=== PATIENT | female | born 1935 | race Caucasian/White ===

== ENCOUNTER → 2018-09-27 | Outpatient (CLI) | payer MEDICARE, OTHER ==
[~2018-09-27] MED LIST: ACETAMINOPHEN325 M1 PO; AMLODIPINE BESYL5 MG PO; ASPIRIN EC81 MG PO; CARVEDILOL12.5 MG PO; COLACE100 MG PO; COLACE100 MG/10 PO; COMBIVENT RESPIM4 GM IH; DIOVAN160 MG PO; DULCOLAX SUPP10 MG RC; FAMOTIDINE20 MG PO; HYDROCHLOROTHIA25 MG PO; LANTUS 3ML100 UNITS/; NEPHRO-VITE TABL1 EA PO; VALIUM2 MG PO; ZOLOFT50 MG PO
--- NOTE | 2018-09-27 18:54 | Diagnostic Imaging Report ---
Exam: MRI without contrast Indication: Neurologic neglect, Alzheimer disease. Comparisons: Head CTs 08/24/2017 and 08/26/2017 Technique: Sagittal T2; axial DWI, FLAIR, MPGR, T1, Coronal FLAIR. Intravenous contrast: None Findings: Scalp: Normal in signal . No masses . Bone marrow: Normal in signal intensity. Extra-axial: No masses or fluid collections. Brain sulci: Appropriate for age. Ventricles: Mild compensated dilatation due to volume loss . No hydrocephalus . Parenchyma: Scattered T2/FLAIR hyperintense foci throughout the supratentorial white matter and cortez are nonspecific but likely represent small vessel ischemic changes. No acute hemorrhage, mass or acute vascular insult. Suprasellar region: No abnormalities. Craniocervical junction: No abnormalities. Patent foramen magnum. No Chiari one malformation. Vessels: Normal flow-voids in the arteries and sinuses. Incidental findings: Disc osteophyte complex at C3-C4 results in mild canal stenosis. IMPRESSION: 1. No acute abnormalities. 2. No changes when compared to head CT dated 08/26/2017. Chronic findings: Mild generalized cerebral volume loss. Mild supra and infratentorial white matter microvascular ischemic changes. A preliminary report was provided by Dr. Pierson on 09/27/2018 6:53 PM. I have reviewed the images and agree with findings in the preliminary report. Signed by: Dr. Dee Gaytan M.D. on 09/27/2018 8:07 PM
== END ==
LOC: MRI 15:58
DX: R41.3 Other amnesia (principal); G30.9 Alzheimer's disease, unspecified
CPT/HCPCS: 70551

== ENCOUNTER 2021-03-02 19:05 | Emergency (ER) | payer MEDICARE, OTHER ==
[~2021-03-02] VITALS: Ht 165.1 cm; Wt 56.7 kg
[2021-03-02] MEDS ORDERED: SODIUM CHLORIDE 0.9% 1000ML 1,000 ML IV ONE ×2 (19:45→23:15)
[2021-03-02 20:11] LABS: BASOPHILS # (AUTO) 0.1 (0.0-0.1); BASOPHILS % 0.8 % (0.0-1.0); EOSINOPHILS # (AUTO) 0.1 (0.0-0.4); EOSINOPHILS % 1.3 % (0.0-6.0); HEMATOCRIT 44.3 % (34.2-44.1); HEMOGLOBIN 14.1 g/dL (12.0-16.0); LYMPHOCYTES # (AUTO) 1.5 (1.0-3.2); LYMPHOCYTES % 15.2 % (18.0-39.1); MEAN CORPUSCULAR HEMOGLOBIN 30.4 pg (28-32); MEAN CORPUSCULAR HGB CONC 31.8 g/dL (31-35); MEAN CORPUSCULAR VOLUME 95.5 fL (81-99); MONOCYTES # (AUTO) 0.6 (0.2-0.8); NEUTROPHILS # (AUTO) 7.7 (2.1-6.9); NEUTROPHILS % 75.8 % (38.7-80.0); PLATELET COUNT 215 x10e3/uL (140-360); RED BLOOD COUNT 4.64 x10e6/uL (3.6-5.1); RED CELL DISTRIBUTION WIDTH 12.6 % (11.7-14.4)
[2021-03-02 20:27] LABS: ALBUMIN 3.4 g/dL (3.5-5.0); ANION GAP 19.1 mmol/L (8-16); CALCIUM 8.6 mg/dL (8.4-10.2); CREATININE, SERUM 1.59 mg/dL (0.57-1.11); POTASSIUM 4.1 mmol/L (3.5-5.1)
[2021-03-02] MEDS ORDERED: SODIUM CHLORIDE 0.9% 500ML 500 ML IV ONE (20:30)
[2021-03-02] MEDS ORDERED: CEFTRIAXONE 1 GM in SODIUM CHLORIDE 0.9% 50ML 50 ML IV ONE (20:30)
[2021-03-02 20:33] LABS: CREATINE KINASE MB 3.7 ng/mL (0-5.0)
[2021-03-02 21:14] LABS: CLARITY,URINE SL CLOUDY (CLEAR); COLOR,URINE STRAW (YELLOW); LEUKOCYTE ESTERASE ,URINE NEGATIVE (NEGATIVE); NITRITE,URINE NEGATIVE (NEGATIVE); PROTEIN,URINE DIPSTICK 1+ (NEGATIVE)
[2021-03-02 21:15] LABS: KETONES,URINE TRACE (NEGATIVE); URINE UROBILINOGEN 0.2 mg/dL (0.2 - 1)
[2021-03-02 21:25] LABS: AMORPHOUS SEDIMENT,URINE MODERATE (FEW); BACTERIA,URINE FEW /HPF; EPITHELIAL CELLS,URINE MODERATE /LPF; WBC,URINE (MAN) 0-5 /HPF (0-5)
[2021-03-02 21:26] LABS: MUCUS,URINE FEW (RARE)
== END 2021-03-03 02:10 | disposition home or self-care (01) ==
LOC: ER 19:57
DX: R53.1 Weakness (principal); E86.0 Dehydration; Z85.820 Personal history of malignant melanoma of skin
CPT/HCPCS: 36415; 70450; 71045; 80053; 81001; 82550; 82553; 83605; 84484; 85025; 87040; 93005; 96365; 99284; J0696; J7030; J7040

== ENCOUNTER 2021-08-09 08:09 | Emergency (ER) | payer MEDICARE, OTHER ==
[~2021-08-09] VITALS: Ht 165.1 cm; Wt 56.7 kg
[2021-08-09 08:39] LABS: BASOPHILS # (AUTO) 0.1 (0.0-0.1); BASOPHILS % 0.5 % (0.0-1.0); HEMATOCRIT 43.6 % (34.2-44.1); HEMOGLOBIN 13.9 g/dL (12.0-16.0); LYMPHOCYTES # (AUTO) 0.9 (1.0-3.2); LYMPHOCYTES % 9.6 % (18.0-39.1); MEAN CORPUSCULAR HEMOGLOBIN 29.8 pg (28-32); MEAN CORPUSCULAR HGB CONC 31.9 g/dL (31-35); MEAN CORPUSCULAR VOLUME 93.6 fL (81-99); MONOCYTES # (AUTO) 0.7 (0.2-0.8); NEUTROPHILS % 82.7 % (38.7-80.0); PLATELET COUNT 196 x10e3/uL (140-360); RED BLOOD COUNT 4.66 x10e6/uL (3.6-5.1); RED CELL DISTRIBUTION WIDTH 13.3 % (11.7-14.4)
[2021-08-09] MEDS ORDERED: TETANUS/DIPHTHERIA TOX ADULT 0.5 ML SYR IM ONE (08:45)
[2021-08-09 08:53] LABS: COLOR,URINE YELLOW (YELLOW)
[2021-08-09 08:54] LABS: CLARITY,URINE CLEAR (CLEAR); KETONES,URINE NEGATIVE (NEGATIVE); LEUKOCYTE ESTERASE ,URINE NEGATIVE (NEGATIVE); NITRITE,URINE NEGATIVE (NEGATIVE); PROTEIN,URINE DIPSTICK 1+ (NEGATIVE); URINE UROBILINOGEN 0.2 mg/dL (0.2 - 1)
[2021-08-09 08:59] LABS: ALBUMIN 4.5 g/dL (3.5-5.0); ALBUMIN/GLOBULIN RATIO 1.2 (0.8-2.0); ANION GAP 14.8 mmol/L (8-16); CALCIUM 9.5 mg/dL (8.4-10.2); CREATININE, SERUM 1.11 mg/dL (0.57-1.11); POTASSIUM 3.8 mmol/L (3.5-5.1)
[2021-08-09 09:17] LABS: BACTERIA,URINE RARE /HPF; EPITHELIAL CELLS,URINE RARE /LPF; RBC,URINE 0-5 /HPF (0-5); TRANSITIONAL EPI CELLS,URINE FEW; WBC,URINE (MAN) 0-5 /HPF (0-5)
[2021-08-09] MEDS ORDERED: SODIUM CHLORIDE 0.9% 1000ML 1,000 ML IV SCH (10:00)
[2021-08-09] MEDS ORDERED: SODIUM CHLORIDE 0.9% 500ML 500 ML ONE (10:10)
[2021-08-09 10:50] VITALS: BP 135/83
== END 2021-08-09 11:02 ==
LOC: ER 08:26
DX: S00.83XA Contusion of other part of head, initial encounter (principal); S50.312A Abrasion of left elbow, initial encounter; M25.552 Pain in left hip; W19.XXXA Unspecified fall, initial encounter; Y92.128 Other place in nursing home as the place of occurrence of the external cause; F03.90 Unspecified dementia, unspecified severity, without behavioral disturbance, psychotic disturbance, mood disturbance, and anxiety; Z85.820 Personal history of malignant melanoma of skin
CPT/HCPCS: 36415; 70450; 71045; 72170; 73090; 80053; 81001; 82550; 84484; 85025; 90471; 90714; 93005; 99284; J7040

== ENCOUNTER 2023-12-19 08:44 | Inpatient (IN) | payer MEDICARE, OTHER ==
[~2023-12-19] VITALS: Ht 165.1 cm; Wt 56.7 kg
[2023-12-19] MEDS: SODIUM CHLORIDE 0.9% 1000ML 1,000 ML IV STA ×2 (09:14→09:15)
[2023-12-19] MEDS: ONDANSETRON HCL INJ 2MG/ML 2ML 2 MG/ML VIAL IV STA (09:15)
[2023-12-19 09:25] LABS: BASOPHILS # (AUTO) 0.1 (0.0-0.1); BASOPHILS % 0.8 % (0.0-1.0); EOSINOPHILS # (AUTO) 0.2 (0.0-0.4); EOSINOPHILS % 3.3 % (0.0-6.0); HEMATOCRIT 36.8 % (34.2-44.1); HEMOGLOBIN 12.1 g/dL (12.0-16.0); LYMPHOCYTES # (AUTO) 1.6 (1.0-3.2); LYMPHOCYTES % 22.1 % (18.0-39.1); MEAN CORPUSCULAR HEMOGLOBIN 30.6 pg (28-32); MEAN CORPUSCULAR HGB CONC 32.9 g/dL (31-35); MEAN CORPUSCULAR VOLUME 93.2 fL (81-99); MONOCYTES # (AUTO) 0.5 (0.2-0.8); MONOCYTES % 6.6 % (4.4-11.3); NEUTROPHILS # (AUTO) 4.8 (2.1-6.9); NEUTROPHILS % 66.1 % (38.7-80.0); PLATELET COUNT 258 x10e3/uL (140-360); RED BLOOD COUNT 3.95 x10e6/uL (3.6-5.1); RED CELL DISTRIBUTION WIDTH 13.7 % (11.7-14.4)
[2023-12-19 09:34] LABS: INR 0.99; PROTHROMBIN TIME 13.3 seconds (11.9-14.5)
[2023-12-19 09:42] LABS: ALANINE AMINOTRANSFERASE 6 IU/L (0-55); ALBUMIN 3.3 g/dL (3.5-5.0); ALBUMIN/GLOBULIN RATIO 0.9 (0.8-2.0); ALKALINE PHOSPHATASE 66 IU/L (40-150); ANION GAP 16.5 mmol/L (8-16); BILIRUBIN,TOTAL 0.5 mg/dL (0.2-1.2); BLOOD UREA NITROGEN 36 mg/dL (7-26); BUN/CREATININE RATIO 17 (6-25); CALCIUM 9.3 mg/dL (8.4-10.2); CARBON DIOXIDE 18 mmol/L (22-29); CHLORIDE 111 mmol/L (98-107); CREATINE KINASE 36 IU/L (29-168); CREATININE, SERUM 2.15 mg/dL (0.57-1.11); EST GLOMERULAR FILTRATION RATE 22 ML/MIN (>=60); GLUCOSE 120 mg/dL (74-118); POTASSIUM 4.5 mmol/L (3.5-5.1); SODIUM 141 mmol/L (136-145); TOTAL PROTEIN 6.9 g/dL (6.5-8.1)
[2023-12-19 09:49] LABS: TROPONIN I < 0.001 ng/mL (0-0.300)
[2023-12-19] MEDS: Vancomycin IV 1 GM in SODIUM CHLORIDE 0.9% 250ML 250 ML IV ONE (10:10)
[2023-12-19 12:38] LABS: BILIRUBIN,URINE NEGATIVE (NEGATIVE); CLARITY,URINE CLOUDY (CLEAR); COLOR,URINE YELLOW (YELLOW); GLUCOSE, URINE NEGATIVE (NEGATIVE); KETONES,URINE NEGATIVE (NEGATIVE); LEUKOCYTE ESTERASE ,URINE LARGE (NEGATIVE); NITRITE,URINE NEGATIVE (NEGATIVE); PH,URINE 6 (5 - 7); PROTEIN,URINE DIPSTICK 2+ (NEGATIVE); URINE UROBILINOGEN 0.2 mg/dL (0.2 - 1)
[2023-12-19 12:59] LABS: BACTERIA,URINE MANY /HPF; EPITHELIAL CELLS,URINE FEW /LPF; WBC,URINE (MAN) >50 /HPF (0-5)
[2023-12-19] MEDS: SODIUM CHLORIDE 0.9% 1000ML 1,000 ML IV SCH (13:51)
[2023-12-19] MEDS ORDERED: ONDANSETRON HCL INJ 2MG/ML 2ML 2 MG/ML VIAL IV PRN (14:00)
[2023-12-19] MEDS: SODIUM CHLORIDE 0.9% 1000ML 1,000 ML IV ONE (14:36)
[2023-12-19] MEDS: MIDODRINE HCL 5 MG TABLET PO ONE (15:47)
[2023-12-19 17:38] LABS: TROPONIN I 0.002 ng/mL (0-0.300)
[2023-12-19 18:16] VITALS: BP 108/50; PULSE 87; RESP 18; TEMP 98; O2SAT 95
[2023-12-19] MEDS ORDERED: vitaminD PO (18:51)
[2023-12-19] MEDS ORDERED: VITAMIN E400 UNI1 PO (18:51)
[2023-12-19] MEDS ORDERED: MIRTAZAPINE15 MG PO (18:51)
[2023-12-19 20:00] VITALS: BP 99/56; PULSE 85; RESP 18; TEMP 98.2; O2SAT 93
[2023-12-20] VITALS (13 sets, daily range): BP systolic 101–115; BP diastolic 51–71; PULSE 76–94; RESP 16–18; TEMP 97.9–98.3; O2SAT 93–99
[2023-12-20] MEDS ORDERED: HYDRALAZINE HCL 20 MG/ML VIAL IV PRN (02:15)
[2023-12-20 03:15] LABS: CREATINE KINASE 23 IU/L (29-168)
[2023-12-20 03:26] LABS: TROPONIN I < 0.001 ng/mL (0-0.300)
[2023-12-20 06:13] LABS: BASOPHILS % 0.7 % (0.0-1.0); EOSINOPHILS # (AUTO) 0.4 (0.0-0.4); EOSINOPHILS % 6.1 % (0.0-6.0); HEMATOCRIT 32.2 % (34.2-44.1); HEMOGLOBIN 9.8 g/dL (12.0-16.0); LYMPHOCYTES # (AUTO) 1.7 (1.0-3.2); LYMPHOCYTES % 29.8 % (18.0-39.1); MEAN CORPUSCULAR HEMOGLOBIN 29.6 pg (28-32); MEAN CORPUSCULAR HGB CONC 30.4 g/dL (31-35); MEAN CORPUSCULAR VOLUME 97.3 fL (81-99); MONOCYTES # (AUTO) 0.5 (0.2-0.8); MONOCYTES % 9.2 % (4.4-11.3); NEUTROPHILS # (AUTO) 3.1 (2.1-6.9); NEUTROPHILS % 53.3 % (38.7-80.0); PLATELET COUNT 225 x10e3/uL (140-360); RED BLOOD COUNT 3.31 x10e6/uL (3.6-5.1); RED CELL DISTRIBUTION WIDTH 13.7 % (11.7-14.4); WHITE BLOOD COUNT 5.78 x10e3/uL (4.8-10.8)
[2023-12-20 07:06] LABS: ALBUMIN 2.4 g/dL (3.5-5.0); ALBUMIN/GLOBULIN RATIO 0.9 (0.8-2.0); ANION GAP 12.1 mmol/L (8-16); BILIRUBIN,TOTAL 0.3 mg/dL (0.2-1.2); CALCIUM 7.6 mg/dL (8.4-10.2); CREATININE, SERUM 1.35 mg/dL (0.57-1.11); POTASSIUM 4.1 mmol/L (3.5-5.1); TOTAL PROTEIN 5.2 g/dL (6.5-8.1)
[2023-12-20] MEDS ORDERED: VITAMIN E 400 UNIT CAP PO SCH (09:00)
[2023-12-20] MEDS: CHOLECALCIFEROL 1,000 UNIT TAB PO SCH (09:29)
[2023-12-20] MEDS: VITAMIN E 400 UNIT CAP PO SCH (13:46)
[2023-12-20] MEDS: LOPERAMIDE HCL 2 MG CAP PO ONE (18:29)
[2023-12-20] MEDS ORDERED: LOPERAMIDE HCL 2 MG CAP PO ONE (18:35)
[2023-12-20] MEDS: MIRTAZAPINE 15 MG TAB PO SCH (21:08)
[2023-12-21] VITALS (8 sets, daily range): BP systolic 105–185; BP diastolic 53–97; PULSE 74–103; RESP 17–20; TEMP 97.2–98.8; O2SAT 95–100
[2023-12-21] MEDS: ACETAMINOPHEN 325 MG TAB PO PRN (00:24)
[2023-12-21] MEDS: ONDANSETRON HCL 4 MG ORAL DISINTEGRATING TAB PO PRN (00:24)
[2023-12-21 05:43] LABS: BASOPHILS % 0.9 % (0.0-1.0); EOSINOPHILS # (AUTO) 0.2 (0.0-0.4); EOSINOPHILS % 3.6 % (0.0-6.0); HEMOGLOBIN 9.1 g/dL (12.0-16.0); LYMPHOCYTES # (AUTO) 0.9 (1.0-3.2); LYMPHOCYTES % 20.6 % (18.0-39.1); MEAN CORPUSCULAR HEMOGLOBIN 30.5 pg (28-32); MEAN CORPUSCULAR HGB CONC 32.5 g/dL (31-35); MONOCYTES # (AUTO) 0.4 (0.2-0.8); MONOCYTES % 8.1 % (4.4-11.3); NEUTROPHILS % 66.1 % (38.7-80.0); PLATELET COUNT 158 x10e3/uL (140-360); RED BLOOD COUNT 2.98 x10e6/uL (3.6-5.1); RED CELL DISTRIBUTION WIDTH 13.2 % (11.7-14.4); WHITE BLOOD COUNT 4.46 x10e3/uL (4.8-10.8)
[2023-12-21 06:18] LABS: ANION GAP 12.1 mmol/L (8-16); CALCIUM 8.2 mg/dL (8.4-10.2); CREATININE, SERUM 1.09 mg/dL (0.57-1.11); POTASSIUM 4.1 mmol/L (3.5-5.1)
[2023-12-21 06:46] LABS: THYROID STIMULATING HORMONE 4.05 uIU/mL (0.350-4.940)
[2023-12-22] VITALS (7 sets, daily range): BP systolic 124–143; BP diastolic 53–87; PULSE 79–97; RESP 17–20; TEMP 97.7–99.1; O2SAT 97–100
[2023-12-22 06:46] LABS: BASOPHILS # (AUTO) 0.1 (0.0-0.1); BASOPHILS % 1.1 % (0.0-1.0); EOSINOPHILS # (AUTO) 0.4 (0.0-0.4); EOSINOPHILS % 8.3 % (0.0-6.0); HEMATOCRIT 28.9 % (34.2-44.1); HEMOGLOBIN 9.2 g/dL (12.0-16.0); LYMPHOCYTES # (AUTO) 1.5 (1.0-3.2); LYMPHOCYTES % 33.3 % (18.0-39.1); MEAN CORPUSCULAR HEMOGLOBIN 30.1 pg (28-32); MEAN CORPUSCULAR HGB CONC 31.8 g/dL (31-35); MEAN CORPUSCULAR VOLUME 94.4 fL (81-99); MONOCYTES # (AUTO) 0.4 (0.2-0.8); MONOCYTES % 8.7 % (4.4-11.3); NEUTROPHILS # (AUTO) 2.1 (2.1-6.9); NEUTROPHILS % 47.5 % (38.7-80.0); PLATELET COUNT 174 x10e3/uL (140-360); RED BLOOD COUNT 3.06 x10e6/uL (3.6-5.1); RED CELL DISTRIBUTION WIDTH 13.3 % (11.7-14.4); WHITE BLOOD COUNT 4.36 x10e3/uL (4.8-10.8)
[2023-12-22 07:39] LABS: ALBUMIN 2.6 g/dL (3.5-5.0); ALBUMIN/GLOBULIN RATIO 0.9 (0.8-2.0); ANION GAP 10.9 mmol/L (8-16); BILIRUBIN,TOTAL 0.6 mg/dL (0.2-1.2); CALCIUM 8.6 mg/dL (8.4-10.2); CREATININE, SERUM 1.07 mg/dL (0.57-1.11); POTASSIUM 3.9 mmol/L (3.5-5.1); TOTAL PROTEIN 5.6 g/dL (6.5-8.1)
[2023-12-22] MEDS: SODIUM CHLORIDE 0.9% 250ML 250 ML ONE (10:53)
[2023-12-22] MEDS ORDERED: LOPERAMIDE HCL 2 MG CAP PO PRN (18:00)
[2023-12-23] VITALS (7 sets, daily range): BP systolic 116–140; BP diastolic 65–84; PULSE 81–91; RESP 18–20; TEMP 98.4–98.7; O2SAT 95–98
[2023-12-23 07:33] LABS: ANION GAP 12.5 mmol/L (8-16); CALCIUM 8.4 mg/dL (8.4-10.2); CREATININE, SERUM 0.91 mg/dL (0.57-1.11); POTASSIUM 3.5 mmol/L (3.5-5.1)
[2023-12-23] MEDS: LOPERAMIDE HCL 2 MG CAP PO PRN (11:55)
[2023-12-24] VITALS: BP 97/84; PULSE 82; RESP 20; TEMP 98.6; O2SAT 97
[2023-12-24 04:00] VITALS: BP 132/88; PULSE 85; RESP 18; TEMP 98.1; O2SAT 95
[2023-12-24 06:25] LABS: BASOPHILS # (AUTO) 0.1 (0.0-0.1); BASOPHILS % 1.7 % (0.0-1.0); EOSINOPHILS # (AUTO) 0.4 (0.0-0.4); EOSINOPHILS % 10.3 % (0.0-6.0); HEMATOCRIT 28.7 % (34.2-44.1); HEMOGLOBIN 9.5 g/dL (12.0-16.0); LYMPHOCYTES # (AUTO) 1.6 (1.0-3.2); MEAN CORPUSCULAR HEMOGLOBIN 30.4 pg (28-32); MEAN CORPUSCULAR HGB CONC 33.1 g/dL (31-35); MONOCYTES # (AUTO) 0.5 (0.2-0.8); MONOCYTES % 11.8 % (4.4-11.3); NEUTROPHILS # (AUTO) 1.5 (2.1-6.9); PLATELET COUNT 193 x10e3/uL (140-360); RED BLOOD COUNT 3.12 x10e6/uL (3.6-5.1); RED CELL DISTRIBUTION WIDTH 13.6 % (11.7-14.4); WHITE BLOOD COUNT 4.16 x10e3/uL (4.8-10.8)
[2023-12-24 06:53] LABS: ANION GAP 11.8 mmol/L (8-16); CALCIUM 8.7 mg/dL (8.4-10.2); CREATININE, SERUM 1.03 mg/dL (0.57-1.11); POTASSIUM 3.8 mmol/L (3.5-5.1)
[2023-12-24 07:54] VITALS: BP 139/71; PULSE 83; RESP 19; TEMP 98.5; O2SAT 96
[2023-12-24 08:10] LABS: ALBUMIN 2.6 g/dL (3.5-5.0); BILIRUBIN,DIRECT 0.2 mg/dL (0.0-0.5); BILIRUBIN,TOTAL 0.3 mg/dL (0.2-1.2); TOTAL PROTEIN 5.8 g/dL (6.5-8.1)
[2023-12-24 08:45] VITALS: BP 139/71; PULSE 83; RESP 19; TEMP 98.5; O2SAT 96
[2023-12-24] MEDS: PANTOPRAZOLE SOD 40 MG TABEC PO SCH (09:00)
[2023-12-24 12:00] VITALS: BP 132/80; PULSE 80; RESP 20; TEMP 97.5; O2SAT 96
[2023-12-24] MEDS ORDERED: QUESTRAN POWDE378 GM PO (15:45)
[2023-12-24] MEDS ORDERED: IMODIUM2 MG PO (15:45)
[2023-12-24] MEDS ORDERED: LISINOPRIL2.5 MG PO (15:45)
[2023-12-24] MEDS ORDERED: ONDANSETRON ODT4 MG PO (15:45)
[2023-12-24] MEDS ORDERED: ACETAMINOPHEN325 M1 PO (15:45)
== END 2023-12-24 17:35 | disposition home or self-care (01) | DRG 871 ==
LOC: ER 08:51 → ERHOLD 13:53 → MED/SURG3 17:37 → MED/SURG2 12-21 15:47
PROVIDERS: ADMIT Internal Medicine; ATTEND Internal Medicine
DX: A41.9 Sepsis, unspecified organism (principal); G93.41 Metabolic encephalopathy; E87.20 Acidosis, unspecified; N17.9 Acute kidney failure, unspecified; N39.0 Urinary tract infection, site not specified; J90 Pleural effusion, not elsewhere classified; I50.30 Unspecified diastolic (congestive) heart failure; I11.0 Hypertensive heart disease with heart failure; I95.89 Other hypotension; I95.2 Hypotension due to drugs; E86.0 Dehydration; Z66 Do not resuscitate; R19.7 Diarrhea, unspecified; R06.89 Other abnormalities of breathing; F03.90 Unspecified dementia, unspecified severity, without behavioral disturbance, psychotic disturbance, mood disturbance, and anxiety; R53.81 Other malaise; R09.89 Other specified symptoms and signs involving the circulatory and respiratory systems; Z99.3 Dependence on wheelchair; Z85.820 Personal history of malignant melanoma of skin; Z82.49 Family history of ischemic heart disease and other diseases of the circulatory system
CPT/HCPCS: 36415; 51700; 71045; 76705; 80048; 80053; 80076; 81001; 82550; 83605; 83735; 84439; 84443; 84484; 85025; 85610; 85730; 87040; 87086; 93005; 93306; 94799; 99252; 99284; J0696; J2405; J7030; J7050; Q0162; U0002